=== PATIENT | male | born 1980 | race African-American/Black ===

== ENCOUNTER 2024-03-31 14:59 | Emergency (ER) | payer OTHER ==
[~2024-03-31] VITALS: Ht 175.3 cm; Wt 82.0 kg
[2024-03-31 15:07] VITALS: BP 141/78; PULSE 114; RESP 18; TEMP 98.7; O2SAT 98
[2024-03-31] MEDS ORDERED: KEPP500 MT (15:08)
[2024-03-31] MEDS: LEVETIRACETAM 500MG TABLET PO SCH (15:18)
[2024-03-31] MEDS ORDERED: LEVETIRACETAM 500MG TABLET PO SCH (21:00)
== END 2024-03-31 15:28 | disposition home or self-care (01) ==
LOC: ER 14:59
DX: R56.9 Unspecified convulsions (principal)
CPT/HCPCS: 99283